=== PATIENT | female | born 1950 | race Caucasian/White ===

== ENCOUNTER 2020-10-12 19:06 | Emergency (ER) | payer OTHER ==
--- OUTSIDE RECORDS SUMMARY | 2020-10-12 19:10 | XMS REPORT | Clinical Summary ---
:1950 Author Organization [facility] Address [address] [place] [address] Care Team Providers Name Role Phone Charbel Hernandez MD Primary Care Provider Allergies No Known Active Allergies Medications Medication Sig Dispensed Refills Start End Status Date Date meloxicam (Mobic) 15 Take 1 tablet 30 tablet 0 04/21/2005/21 mg tabletIndications: (15 mg total) 20 020 Right hip pain, by mouth daily Trochanteric bursitis for 30 days. of right hip meloxicam (Mobic) 15 Take 1 tablet 30 tablet 0 06/07/2007/072 Discontinued mg tabletIndications: (15 mg total) 20 020 (Reorder) Right hip pain, by mouth daily Degenerative tear of for 30 days. acetabular labrum of right hip meloxicam (Mobic) 15 Take 1 tablet 30 tablet 0 07/07/2008/06 mg tabletIndications: (15 mg total) 20 020 Right hip pain, by mouth daily Degenerative tear of for 30 days. acetabular labrum of Take with food. right hip methylPREDNISolone Take 1 tablet 21 tablet 0 08/05/202 (MEDROL DOSEPAK) 4 mg (4 mg total) by 20 02 0 tabletIndications: mouth See Admin Acute right-sided low Instructions back pain, unspecified for 5 days. Use whether sciatica as directed by present, Lumbar package radiculopathy, instructions Degeneration of lumbar intervertebral disc, Scoliosis of lumbar spine, unspecified scoliosis type meloxicam (Mobic) 15 Take 1 tablet 30 tablet 0 09/01/2010/01 mg tabletIndications: (15 mg total) 20 020 Chronic right-sided by mouth daily low back pain, for 30 days. unspecified whether sciatica present, Degeneration of lumbar intervertebral disc, Scoliosis of lumbar spine, unspecified scoliosis type, Pain of right lower extremity Active Problems No known active problems Encounters Date Type Specialty Care Team Description 09/09/2020 Office Visit Orthopedic Surgery Jerardo Triana Right hi p pain (Primary Dx); MD Jonnathan Lumbar radiculo monica; Degeneration of lumbar intervertebral disc; Acute right-kyle ed low back pain, unspecified whether sciatica present; Scoliosis of fiona mbar spine, unspecified scoliosis type 09/08/2020 Hospital Encounter Radiology Jerardo Triana MD 09/08/2020 Hospital Encounter Radiology Jerardo Triana Abnormal MRI, lumbar spine; MD Jonnathan Lesion of lumba r spine 09/08/2020 Travel 09/02/2020 Telephone Orthopedic Surgery Toan Bryant, JOSE 09/02/2020 Orders Only Orthopedic Surgery Haylee Bonilla, Abnormal MRI, lumbar spine (Primary Dx); RYAN Lesion of lumba r spine 09/01/2020 Hospital Encounter Radiology Jerardo Triana Chronic right-sided low back pain, unspecified whether sciatica present; MD Jonnathan Degeneration of lumbar intervertebral disc; Scoliosis of fiona mbar spine, unspecified scoliosis type; Pain of right l ower extremity 09/01/2020 Office Visit Orthopedic Surgery Jerardo Triana Chronic right-sided low back pain, unspecified whether sciatica present (Primary Dx); MD Jonnathan Degeneration of lumbar intervertebral disc; Scoliosis of fiona mbar spine, unspecified scoliosis type; Pain of right l ower extremity 09/01/2020 Travel 08/05/2020 Office Visit Orthopedic Surgery Jerardo Triana Acute ri ght-sided low back pain, unspecified whether sciatica present (Primary Dx); MD Jonnathan Lumbar radiculo monica; Degeneration of lumbar intervertebral disc; Scoliosis of fiona mbar spine, unspecified scoliosis type 08/05/2020 Travel 08/01/2020 Travel 07/07/2020 Telemedicine Orthopedic Surgery Jerardo Triana Right hi p pain; MD Jonnathan 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 06/07/2020 Office Visit Orthopedic Surgery Jerardo Triana Right hi p pain (Primary Dx); MD Jonnathan 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; Tear of right g luteus minimus tendon, initial encounter; Tendinopathy of right gluteus medius 06/06/2020 Travel 05/27/2020 Office Visit Orthopedic Surgery Jerardo Triana Right hi p pain MD Jonnathan (Primary Dx) 05/26/2020 Travel 04/21/2020 Office Visit Orthopedic Surgery Jerardo Triana Right hi p pain (Primary Dx); MD Jonnathan Trochanteric bu rsitis of right hip 04/21/2020 Travel 04/07/2020 Office Visit Orthopedic Surgery Jerardo Triana Right hi p pain (Primary Dx); MD Jonnathan Trochanteric bu rsitis of right hip 04/07/2020 Travel 03/24/2020 Office Visit Orthopedic Surgery Jerardo Triana Right hi p pain (Primary Dx); MD Jonnathan Trochanteric bu rsitis of right hip 03/24/2020 Travel 03/18/2020 Travel 02/24/2020 Travel 01/08/2020 Travel 12/31/2019 Office Visit Orthopedic Surgery Jerardo Triana Right hi p pain (Primary Dx); MD Jonnathan Greater trochan teric bursitis of right hip 12/31/2019 Travel after 10/12/2019 Social History Tobacco Use Types Packs/Day Years Used Date Never Smoker Smokeless Tobacco: Never Used Sex Assigned at Date Recorded Not on file Job Start Date Occupation Industry Not on file Not on file Not on file Last Filed Vital Signs Vital Sign Reading Time Taken Comments Blood Pressure - - Pulse - - Temperature - - Respiratory Rate - - Oxygen Saturation - - Inhaled Oxygen Concentration - - Weight 61.2 kg (135 lb) 12/31/2019 1:32 PM CDT Height 157.5 cm (5' 2") 12/31/2019 1:32 PM CDT Body Mass Index 24.69 12/31/2019 1:32 PM CDT Plan of Treatment Health Maintenance Due Date Last Done Comments COVID-19 VACCINE (#1) 1966 BREAST CANCER SCREENING 1999 COLONOSCOPY SCREENING 1999 SHINGLES VACCINES (#1) 1999 65+ PNEUMOCOCCAL VACCINE (1 of 1 - PPSV23) 2014 INFLUENZA VACCINE 05/21/2020 Procedures Procedure Name Priority Date/Time Associated Diagnosis Comme nts NM BONE SCAN 3 PHASE STAT 09/08/2020 12:14 Abnormal MRI, fiona mbar Results for this PM WEB SUPPORT ENGINEER spine procedure are in Lesion of lumbar the results spine section. MRI LUMBAR SPINE WO STAT 09/01/2020 3:41 Chronic right-kyle ed Results for this CONTRAST PM WEB SUPPORT ENGINEER low back pain, procedure are in unspecified whether the resu lts sciatica present section. Degeneration of lumbar intervertebral disc Scoliosis of lumbar spine, unspecified scoliosis type Pain of right lower extremity XR LUMBAR SPINE Routine 08/05/2020 10:52 Acute right-sided low Results for this COMPLETE 4+ VW AM CDT back pain, procedure are in unspecified whether the resu lts sciatica present section. MRI LOWER EXTREMITY Routine 06/06/2020 11:29 Right hip pain Re sults for this JOINT WO CONTRAST AM CDT procedure are in RIGHT the results section. CA ARTHROCENTESIS Routine 04/21/2020 10:00 Right hip jessy n Results for this ASPIR&/INJ MAJOR AM CDT Trochanteric bursitis pr ocedure are in JT/BURSA W/O US of right hip the results section. CA ARTHROCENTESIS Routine 04/07/2020 10:00 Right hip jessy n Results for this ASPIR&/INJ MAJOR AM CDT Trochanteric bursitis pr ocedure are in JT/BURSA W/O US of right hip the results section. CA ARTHROCENTESIS Routine 03/24/2020 9:30 Right hip jessy n Results for this ASPIR&/INJ MAJOR AM CDT Trochanteric bursitis pr ocedure are in JT/BURSA W/O US of right hip the results section. CA ARTHROCENTESIS Routine 12/31/2019 1:50 Greater trochanteri c Results for this ASPIR&/INJ MAJOR PM CDT bursitis of right hip pr ocedure are in JT/BURSA W/O US the results section. XR HIP 2-3 VIEWS RIGHT Routine 12/31/2019 1:39 Right hip pain Results for this PM CDT procedure are i n the results section. after 10/12/2019 Results NM Bone Scan 3 Phase (09/08/2020 12:14 PM WEB SUPPORT ENGINEER) Specimen Narrative Performed At PROCEDURE: NM BONE SCAN 3 PHASE HM [facility] INDICATION: Abnormal MRI. Lesion of lumbar spine. COMPARISON: MRI of the lumbar spine . TECHNIQUE: The patient was injected with 25 mCi of Tc- 99m labeled MDP IV and a three phase bone scan of the lumbar spine was pe rformed. Immediate flow and pool images were followed by delayed images a cquired three hours later. FINDINGS: Flow and pool images are unremarkable. D elayed images demonstrate scoliosis of the thoracolumbar spine, with associated degenerative uptake. No suspicious upt lashay in L4. IMPRESSION: 1. Probable benign lesion in L4. 2. Scoliosis of the thoracolumbar spine, with associ ated degenerative uptake. [facility]-[id number] Procedure Note Hm Interface, Radiology Results Incoming - 09/08/2020 12:51 PM WEB SUPPORT ENGINEER PROCEDURE: NM BONE SCAN 3 PHASE INDICATION: Abnormal MRI. Lesion of fiona mbar spine. COMPARISON: MRI of the lumbar spine 09/2020. TECHNIQUE: The patient was injected with 25 mCi of Tc-99m labeled MDP IV and a three phase bone scan of the lumbar spine was performed. Immediate flow and pool images were followed by delayed images acquired three hours later. FINDINGS: Flow and pool images are unre markable. Delayed images demonstrate scoliosis of the thoracolumbar spine, with associated degenerative uptake. No suspicious uptake in L4. IMPRESSION: 1. Probable benign lesion in L4. 2. Scoliosis of the thoracolumbar spine , with associated degenerative uptake. [facility]-[id number] Performing Organization Address City/State/ZIP Code Phon e Number [facility] [address] [place] [address] MRI Lumbar Spine Wo Contrast (09/01/2020 3:41 PM WEB SUPPORT ENGINEER) Specimen Narrative Performed At This result has an attachment that is no t available. EXAMINATION: MRI LUMBAR SPINE WO CONTRAST [facility] CLINICAL HISTORY: M54.5 Low back pain, G 89.29 Other chronic pain, Back pain > 6wks conservative tx persistent sx COMPARISON: Lumbar spine x-ray dated August 05 0 TECHNIQUE: Multiplanar multisequence non contrast enhanced examination was performed of the Lumbar spine. FINDINGS: Numbering assumes that the last visualized functional disc to be L5-S1. There is 34 degrees leftward curvature a t L2. Leftward listhesis of L2, L3 and L4. There is leftward rotation of the lumbar spine in addition to the scoliosis. Vertebral body heights are maintained wi thout acute fracture. No acute edema identified. There is a large sclerotic focus in the lateral aspect of the L4 vertebral body which measures 2.2 cm in superior inferior dimension. Recommend correlation with bone scan imaging to determine significance and to exclude malignancy. There is no edema associated with this lesion. The borders are irregular. It remains indeterminate. Soft tissues shows no mass, adenopathy or aneurysm. The partially visualized spinal cord and the conus are unremarkable. Axial images through the disc spaces demonstrate the f ollowing: T12-L1: No significant posterior disc di sease, spinal canal, lateral recess or neural foraminal stenosis. L1-L2: No significant posterior disc dis ease, spinal canal, lateral recess or neural foraminal stenosis. L2-L3: Facet hypertrophy and spurring an d disc bulge results in mild narrowing of left lateral recess. The foramina are patent. L3-L4: There is disc desiccation with di sc bulge with facet hypertrophy with moderate left and minimal right foraminal narrowing. The central thecal sac is patent. The foramina are patent. L4-L5: There is disc bulge and facet hyp ertrophy with moderate narrowing of left lateral recess and mild right lateral recess narrowing. The central thecal sac is patent. Facet spurring and disc osteophyte changes results in moderate left foraminal narrowing. The right foramen is patent. L5-S1: There is facet hypertrophy and di sc bulge with no significant canal or lateral recess narrowing. Facet spurring and disc osteophyte changes results in moderate left and minimal right foraminal narrowing. The partially visualized upper sacrum is unremarkable. IMPRESSION: 1.There is prominent leftward scoliosis and rotation with multilevel spondylosis as detailed above. No acute osseous abnormality is identified. 2.There is a 2.2 cm sclerotic lesion not ed in the right aspect of the L4 vertebral body. This could be a large bone island or a sclerotic metastatic lesion. Recommend further evaluation with bone scan imaging. [facility]-[id number] Procedure Note Hm Interface, Radiology Results - 09/01/2020 3:58 PM WEB SUPPORT ENGINEER EXAMINATION: MRI LUMBAR SPINE WO CONTRAST CLINICAL HISTORY: M54.5 Low back pain, G 89.29 Other chronic pain, Back pain > 6wks conservative tx persistent sx COMPARISON: Lumbar spine x-ray dated Oc 2019 TECHNIQUE: Multiplanar multisequence non contrast enhanced examination was performed of the Lumbar spine. FINDINGS: Numbering assumes that the last visualiz ed functional disc to be L5-S1. There is 34 degrees leftward curvature a t L2. Leftward listhesis of L2, L3 and L4. There is leftward rotation of the lumbar spine in addition to the scoliosis. Vertebral body heights are maintained wi thout acute fracture. No acute edema identified. There is a large sclerotic focus in the lateral aspect of the L4 vertebral body which measures 2.2 cm in superior inferior dimension. Recommend correlation with pablo ne scan imaging to determine significance and to exclude malignancy. There is no edema associated with this lesion. The borders are irregular. It remains indeterminate. Soft tissues shows no mass, adenopathy o r aneurysm. The partially visualized spinal cord and the conus are unremarkable. Axial images through the disc spaces dem onstrate the following: T12-L1: No significant posterior disc di sease, spinal canal, lateral recess or neural foraminal stenosis. L1-L2: No significant posterior disc dis ease, spinal canal, lateral recess or neural foraminal stenosis. L2-L3: Facet hypertrophy and spurring an d disc bulge results in mild narrowing of left lateral recess. The foramina are patent. L3-L4: There is disc desiccation with di sc bulge with facet hypertrophy with moderate left and minimal right foraminal narrowing. The central thecal sac is patent. The foramina are patent. L4-L5: There is disc bulge and facet hyp ertrophy with moderate narrowing of left lateral recess and mild right lateral recess narrowing. The central thecal sac is patent. Facet spurring and disc osteophyte changes results in moderate left foraminal narrowing. The right foramen is patent. L5-S1: There is facet hypertrophy and di sc bulge with no significant canal or lateral recess narrowing. Facet spurring and disc osteophyte changes results in moderate left and minimal right foraminal narrowing. The partially visualized upper sacrum is unremarkable. IMPRESSION: 1.There is prominent leftward scoliosis and rotation with multilevel spondylosis as detailed above. No acute osseous abnormality is identified. 2.There is a 2.2 cm sclerotic lesion not ed in the right aspect of the L4 vertebral body. This could be a large bone island or a sclerotic metastatic lesion. Recommend further evaluation with bone scan imaging. [facility]-[id number] Performing Organization Address City/State/ZIP Code Phon e Number [facility] [address] [place] [address] XR Lumbar Spine Complete 4+ Vw (08/05/2020 10:52 AM CDT) Specimen Narrative Performed At This result has an attachment that is no t available. AP lateral oblique x-rays of the lumbar spine show a severe scoliosis. [facility] With angulation of her low back. Has marked facet na rrowing degenerative changes throughout her low back area. She has marked interspace narrowing at multiple levels in her low back. Performing Organization Address City/State/ZIP Code Phon e Number MELIA [facility] [address] [place] [address] MRI Lower Extremity Joint Wo Contrast Right (06/06/2020 11:29 AM CDT) Specimen Narrative Performed At This result has an attachment that is no t available. EXAMINATION: MRI LOWER EXTREMITY JOINT WO CONTRAST RIGHT [facility] CLINICAL HISTORY: M25.551 Pain in righ t hip, Hip pain chronic initial exam TECHNIQUE: Multiplanar, multisequence MR imaging examination of the right hip obtained without contrast. Radial imaging also archived and interpreted. COMPARISON: X-ray 12/31/2019 IMPRESSION: 1.Marrow signal show no osteonecrosis or fracture. No hip joint effusion. 2.Mild degenerative change of the hip. A nondisplaced anterosuperior labral tear is likely degenerative. Series 5 image 12. Also on series 10 images 2 and 3. Mild subjacent reactive marrow change in the acetabulum. 3.Mild tendinitis and peritendinitis of the gluteus medius insertion. Low-grade partial thickness interstitial tearing of the gluteus minimus insertion. 4.Mild common hamstring origin tendiniti s mostly involving the semimembranosus origin. Remaining visualized muscle groups appear well-maintained. 5.Visualized portions of the sciatic nerve well-mainta ined. 6.Mild trochanteric bursitis. SUMMARY: Low-grade partial-thickness interstitial tearing of the gluteus minimus insertion and mild gluteus medius tendinitis and peritendinitis. Mild trochanteric bursitis. Nondisplaced degenerative tear of the an terosuperior labrum and other findings as above [id number] Procedure Note Interface, Radiology Results Incoming - 06/06/2020 11:45 AM CDT EXAMINATION: MRI LOWER EXTREMITY JOINT WO CONTRAST RIGHT CLINICAL HISTORY: M25.551 Pain in right hip, Hip pain chronic initial exam TECHNIQUE: Multiplanar, multisequence MR imaging examination of the right hip obtained without contrast. Radial imaging also archived and interpreted. COMPARISON: X-ray 12/31/2019 IMPRESSION: 1.Marrow signal show no osteonecrosis or fracture. No hip joint effusion. 2.Mild degenerative change of the hip. A nondisplaced anterosuperior labral tear is likely degenerative. Series 5 image 12. Also on series 10 images 2 and 3. Mild subjacent reactive marrow change in the acetabulum. 3.Mild tendinitis and peritendinitis of the gluteus medius insertion. Low-grade partial thickness interstitial tearing of the gluteus minimus insertion. 4.Mild common hamstring origin tendiniti s mostly involving the semimembranosus origin. Remaining visualized muscle groups appear well-maintained. 5.Visualized portions of the sciatic ner ve well-maintained. 6.Mild trochanteric bursitis. SUMMARY: Low-grade partial-thickness interstitial tearing of the gluteus minimus insertion and mild gluteus medius tendinitis and peritendinitis. Mild trochanteric bursitis. Nondisplaced degenerative tear of the an terosuperior labrum and other findings as above [id number] Performing Organization Address City/State/[facility] Code [facility] e Number [id number] [facility] [address] [place] [address] Large Joint Arthrocentesis: hip, R greater trochanteric bursa (04/21/2020 10:00 AM CDT) Narrative Performed At Jerardo Triana MD 04/21/2020 2: 37 PM Large Joint Arthrocentesis: hip, R great er trochanteric bursa Consent given by: patient Timeout: Immediately prior to procedure a time out was called to verify the correct patient, procedure, equipmen t, systems support specialist and site/side marked as required Supporting Documentation Indications: pain Procedure Details Ultrasound guided: no Platelet Rich Plasma Used: no PRP Used Location: hip - R greater trochanteric b ursa Right side: Needle size: 25 G Approach: lateral Right hip medications administered: 1 mL lidocaine 10 mg/mL (1 %); 6 mg betamethasone acetate & sodium phosphate 6 mg/mL Patient tolerance: patient tolerated the procedure wel l with no immediate complications Large Joint Arthrocentesis: hip, R greater trochanteric bursa (04/07/2020 10:00 AM CDT) Narrative Performed At Jerardo Triana MD 04/07/2020 2 :04 PM Large Joint Arthrocentesis: hip, R great er trochanteric bursa Consent given by: patient Timeout: Immediately prior to procedure a time out was called to verify the correct patient, procedure, equipmen t, systems support specialist and site/side marked as required Supporting Documentation Indications: pain Procedure Details Ultrasound guided: no Platelet Rich Plasma Used: no PRP Used Location: hip - R greater trochanteric b ursa Right side: Needle size: 25 G Approach: lateral Right hip medications administered: 1 mL lidocaine 10 mg/mL (1 %); 6 mg betamethasone acetate & sodium phosphate 6 mg/mL Patient tolerance: patient tolerated the procedure wel l with no immediate complications Large Joint Arthrocentesis: hip, R greater trochanteric bursa (03/24/2020 9:30 AM CDT) Narrative Performed At Jerardo Triana MD 03/24/2020 1: 51 PM Large Joint Arthrocentesis: hip, R great er trochanteric bursa Consent given by: patient Timeout: Immediately prior to procedure a time out was called to verify the correct patient, procedure, equipmen t, systems support specialist and site/side marked as required Supporting Documentation Indications: pain Procedure Details Ultrasound guided: no Platelet Rich Plasma Used: no PRP Used Location: hip - R greater trochanteric b ursa Right side: Needle size: 25 G Approach: lateral Right hip medications administered: 1 mL lidocaine 10 mg/mL (1 %); 6 mg betamethasone acetate & sodium phosphate 6 mg/mL Patient tolerance: patient tolerated the procedure wel l with no immediate complications Large Joint Arthrocentesis: hip, R greater trochanteric bursa (12/31/2019 1:50 PM CDT) Narrative Performed At Jerardo Triana MD 12/31/2019 4 :19 PM Large Joint Arthrocentesis: hip, R great er trochanteric bursa Consent given by: patient Supporting Documentation Indications: pain Procedure Details Ultrasound guided: no Platelet Rich Plasma Used: no PRP Used Location: hip - R greater trochanteric b ursa Right side: Needle size: 25 G (25 G) Approach: lateral Right hip medications administered: 1 mL lidocaine 10 mg/mL (1 %); 6 mg betamethasone acetate & sodium phosphate 6 mg/mL (3mg betamethasone acet, sod phos 3mg/ml) Patient tolerance: patient tolerated the procedure wel l with no immediate complications XR Hip 2-3 View Right (12/31/2019 1:39 PM CDT) Specimen Narrative Performed At This result has an attachment that is no t available. PA and lateral x-ray of the right hip shows the contours of the femoral HM [facility] head and acetabulum are normal. The hip joint space was normal with no narrowing. Small opacification at the head neck junc tion. There is some subtle cysts in the acetabulum. Performing Organization Address City/State/ZIP Code Phon e Number HM [facility] [address] [place] [address] after 10/12/2019 (Home) [address] [place] [id number] Advance Directives For more information, please contact: [phone] Type Date Recorded Patient Ship Erector Explanati on Advance Directives, Living Will and Medical Power of Electrician Bus
--- OUTSIDE RECORDS SUMMARY | 2020-10-12 19:10 | XMS REPORT | Clinical Summary ---
:1950 Author Organization [facility] Address [address] [place] [address] Care Team Providers Name Role Phone Travis Hernandez Primary Care Provider Allergies Not on File Medications Not on file Active Problems Not on file Encounters Date Type Specialty Care Team Description 08/05/2020 Hospital Encounter Sheryl Alarcon Breast lump or mass; MD [place] Lump or mass in breast 08/05/2020 Hospital Encounter Olena Alarconly Lump or mass in MD Mary breast 08/05/2020 Outside Orders Sheryl Alarcon or mas s in MD Mary breast (Primary Dx) 03/28/2020 Outside Orders Central Scheduling Sheryl Alarcon t lump or mass MD Mary (Primary Dx) after 10/12/2019 Social History Tobacco Use Types Packs/Day Years Used Date Never Assessed Sex Assigned at Date Recorded Not on file Last Filed Vital Signs Not on file Plan of Treatment Health Maintenance Due Date Last Done Comments COLON CANCER SCREENING COLONOSCOPY 1950 PNEUMOCOCCAL 65+ YRS (1 of 1 - 2014 [id number]) INFLUENZA VACCINE (#1) 2020 BREAST CANCER SCREENING 08/05/2022 08/05/2020, 03/03/2018, 01/29/2017, Additional history exists Procedures Procedure Name Priority Date/Time Associated Comments Diagnosis US BREAST BILATERAL Routine 08/05/2020 10:14 AM Lump or mass i n Results for this CDT breast procedure are i n the results section. MM DIGITAL MAMMO Routine 08/05/2020 9:44 AM Lump or mass in R esults for this DIAGNOSTIC BILATERAL CDT breast procedu re are in the results section. after 10/12/2019 Results US Breast Bilateral (08/05/2020 10:14 AM CDT) Specimen Narrative Performed At [facility] #[id number] - MM, U/S, BREAST, BILATERAL COMPLETE ULTRASOUND OF BOTH BREASTS AND AXILLA: 08/05/2020 Comparison is made to exam dated: 07/21 mammogram - [facility]. Color flow and real-time ultrasound of b oth breasts four quadrants, retroareolar, and axilla regions were pe rformed. Coreas scale images of the real-time examination were review ed. No significant abnormalities were seen s onographically in either breast, with atention to the area of cli nical concern in the left posterior chest/back. IMPRESSION: BENIGN The findings have been discussed with th e patient. There is no sonographic evidence of apryl gnancy. A 1 year screening mammogram is recommen ded. Claudine James M.D. pth/:08/05/2020 10:36:38 Normal Exam Ultrasound BI-RADS: 2 Benign [id number] Procedure Note Interface, External Ris In - 08/05/2020 4:12 PM [facility] #[id number] - MM, U/S, BREAST, BILATERAL COMPLETE ULTRASOUND OF BOTH BREASTS AND AXILLA: 08/05/2020 Comparison is made to exam dated: 08/05 mammogram - [facility]. Color flow and real-time ultrasound of b oth breasts four quadrants, retroareolar, and axilla regions were pe rformed. Coreas scale images of the real-time examination were review ed. No significant abnormalities were seen s onographically in either breast, with atention to the area of cli nical concern in the left posterior chest/back. IMPRESSION: BENIGN The findings have been discussed with th e patient. There is no sonographic evidence of apryl gnancy. A 1 year screening mammogram is recommen ded. Claudine James M.D. pth/:08/05/2020 10:36:38 Normal Exam Ultrasound BI-RADS: 2 Benign [id number] Performing Organization Address City/State/Zipcode Phone Number [facility] MM digital mammo diagnostic bilateral (08/05/2020 9:44 AM CDT) Specimen Narrative Performed At [facility] #[id number] - MM, DIGITAL MAMMO, DIAGNOSTI C, BILATERAL INCLUDING CAD BILATERAL DIGITAL DIAGNOSTIC MAMMOGRAM W ITH CAD: 08/05/2020 Comparison is made to exams dated: 02/18 mammogram and 01/29/2017 mammogram - [facility]. The tissue of both breasts is heterogene ously dense. This may lower the sensitivity of mammography. Current study was also evaluated with a Computer Aided Detection (CAD) system. Benign appearing calcifications are pres ent in both breasts. There is a post-surgical scar associated with the left breast. No significant masses, calcifications, or o ther findings are seen in either breast. IMPRESSION: There is no mammographic evidence of mal ignancy. A 1 year screening mammogram is recommended. Claudine James M.D. pth/penrad:08/05/2020 10:15:09 Normal Exam Mammogram BI-RADS: 2 Benign [id number] Procedure Note Interface, External Ris In - 08/05/2020 4:12 PM CDT #[id number] - MM, DIGITAL MAMMO, DIAGNOSTI C, BILATERAL INCLUDING CAD BILATERAL DIGITAL DIAGNOSTIC MAMMOGRAM W ITH CAD: 08/05/2020 Comparison is made to exams dated: 03/03 mammogram and 01/29/2017 mammogram - [facility]. The tissue of both breasts is heterogene ously dense. This may lower the sensitivity of mammography. Current study was also evaluated with a Computer Aided Detection (CAD) system. Benign appearing calcifications are pres ent in both breasts. There is a post-surgical scar associated with the left breast. No significant masses, calcifications, or o ther findings are seen in either breast. IMPRESSION: There is no mammographic evidence of mal ignancy. A 1 year screening mammogram is recommended. Claudine James M.D. pth/penrad:08/05/2020 10:15:09 Normal Exam Mammogram BI-RADS: 2 Benign [id number] Performing Organization Address City/State/Zipcode Phone Number [facility] after 10/12/2019 Insurance Payer Benefit Plan / Subscriber ID Effective Dates Phone Addre ss Type Group AET[employer] - MGD AETNA OPEN [id number] 2018-Present HMO/POS CARE ACCESS HMO NAP [phone] [id number] (Work)
--- OUTSIDE RECORDS SUMMARY | 2020-10-12 19:11 | XMS REPORT | Continuity of Care Document ---
:[address] [facility] t Address [address] [place] [address] Care Team Providers Name Role Phone Travis Hernandez MD Primary Care Physician Jonnathan Triana MD Attending Clinician Arun Bryant NP Attending Clinician Chad DAVIS Attending Clinician Unavailable Mary Alarcon MD Attending Clinician TRUONG Attending Clinician Unavailable Payers Payer Name Policy Type Policy Effective Date Expiration Date Sour ce Number AETNAAETNA PPO [id number] 2018 [facility] 00:00:00 Yarsanism [id number] 2018-Presen tPPO AETNA - MGD [id number] 2018 [facility] OPEN 00:00:00 Medical Ce nter ACCESS HMO [id number] 1/2018-PresentHM O/POS Problems Condition Condition Condition Status Onset Resolution Last Treating Co mments Source Name Details Category Date Date Treatment Clinician Date Left Left Problem Active [facility] shoulder shoulder [id number] it y of pain pain [place] [facility] Allergies, Adverse Reactions, Alerts This patient has no known allergies or adverse reactions. Social History Social Habit Start Date Stop Date Quantity Comments Source Sex Assigned At [facility] Tobacco use and 2019-12-31 2019-12-31 Never used [facility] ethodist exposure 00:00:00 00:00:00 Smoking Status Start Date Stop Date Source Never smoker Aram Slaughter t Medications Ordered Filled Start Stop Current Ordering Indication Dosage Frequency Signature Comments Components Source Medication Medication Date Date Medication? Clinician (SIG) Name Name meloxicam 2019-10- No Pain of 15mg QD Take 1 Cristopher kennedy ([facility]) 15 11-01 12-12 right lower tablet (15 [facility] mg tablet 00:00: 23:59 extremity mg total) st 00 :00 by mouth daily for 30 days. methylPREDN 2019-10- No Scoliosis 4mg Take 1 Terrell ISolone 0-16 10-21 of lumbar tablet (4 M ethodi (MEDROL 00:00: 23:59 spine, mg total) st DOSEPAK) 4 00 :00 unspecified by mouth mg tablet scoliosis See Admin type Instructio ns for 5 days. Use as directed by package instructio ns meloxicam 2019- No Degenerativ 15mg QD Take 1 Chiu ([employer]) 15 9-17 10-17 e tear of tablet (15 [facility] mg tablet 00:00: 23:59 acetabular mg total) st 00 :00 labrum of by mouth right hip daily for 30 days. Take with food. meloxicam 2019- No Degenerativ 15mg QD Take 1 Chiu ([employer]) 15 818 09-17 e tear of tablet (15 [facility] mg tablet 00:00: 00:00 acetabular mg total) st 00 :00 labrum of by mouth right hip daily for 30 days. meloxicam 2019- No Trochanteri 15mg QD Take 1 Terrell ([employer]) 15 04-21 08-01 c bursitis tablet (15 [facility] mg tablet 00:00: 23:59 of right mg total) st 00 :00 hip by mouth daily for 30 days. Vital Signs Vital Name Observation Time Observation Value Comments Source Body height 2019-12-31 13:32:00 157.5 cm Aram Burgos Body weight 2019-12-31 13:32:00 61.236 kg Aram Burgos BMI 2019-12-31 13:32:00 24.69 kg/m2 Aram Burgos Procedures Procedure Date / Time Performing Clinician Source Performed NM BONE SCAN 3 PHASE 2020-09-08 12:14:21 Akash Triana MRI LUMBAR SPINE WO 2020-09-01 15:41:30 Akash Triana CONTRAST XR LUMBAR SPINE COMPLETE 2020-08-05 10:52:30 Akash Triana 4+ VW US BREAST BILATERAL 2020-08-05 10:14:00 Sheryl Alarcon MaikelJerrell [facility] Center MM DIGITAL MAMMO 2020-08-05 09:44:00 Laura Alarconrichie KoJerrell [facility] - DIAGNOSTIC BILATERAL Medical [address] ter MRI LOWER EXTREMITY JOINT 2020-06-06 11:29:24 Akash Triana WO CONTRAST RIGHT MS ARTHROCENTESIS 2020-04-21 10:00:00 Akash Triana ethodist ASPIR&/INJ MAJOR JT/BURSA W/O US MS ARTHROCENTESIS 2020-04-07 10:00:00 Akash Triana ethodist ASPIR&/INJ MAJOR JT/BURSA W/O US MS ARTHROCENTESIS 2020-03-24 09:30:00 Akash Triana ethodist ASPIR&/INJ MAJOR JT/BURSA W/O US MS ARTHROCENTESIS 2019-12-31 13:50:00 Akash Triana ethodist ASPIR&/INJ MAJOR JT/BURSA W/O US XR HIP 2-3 VIEWS RIGHT 2019-12-31 13:39:10 Akash Triana Plan of Care Planned Activity Planned Date Details Comments Source Future Scheduled 2022-08-05 Screening for SAM Davalos es - Test 00:00:00 malignant neoplasm of Medica l Center breast (procedure) [code = 927023109] Future Scheduled 2020-06-21 INFLUENZA VACCINE (#1) [facility] Test 00:00:00 [code = INFLUENZA Medical Ce nter VACCINE (#1)] Future Scheduled 2020-05-21 INFLUENZA VACCINE [facility] Test 00:00:00 [code = INFLUENZA VACCINE] Future Scheduled 2014 65+ PNEUMOCOCCAL Aram [facility] Test 00:00:00 VACCINE (1 of 1 - PPSV23) [code = 65+ PNEUMOCOCCAL VACCINE (1 of 1 - PPSV23)] Future Scheduled 2014 PNEUMOCOCCAL 65+ YRS [facility] - Test 00:00:00 (1 of 1 - [facility] [id number] PCV13) [code = PNEUMOCOCCAL 65+ YRS (1 of 1 - [id number] PCV13)] Future Scheduled 1999 BREAST CANCER Terrell [facility] Test 00:00:00 SCREENING [code = BREAST CANCER SCREENING] Future Scheduled 1999 COLONOSCOPY SCREENING [place] [facility] Test 00:00:00 [code = COLONOSCOPY SCREENING] Future Scheduled 1999 SHINGLES VACCINES (#1) [place] [facility] Test 00:00:00 [code = SHINGLES VACCINES (#1)] Future Scheduled 1965 COVID-19 VACCINE (#1) [place] [facility] Test 00:00:00 [code = COVID-19 VACCINE (#1)] Future Scheduled [address] [facility] - Test 00:00:00 malignant neoplasm of Medica l Center colon (procedure) [code = 428861402] Encounters Start End Encounter Admission Attending Care Care Encounter Source Date/Time Date/Time Type Type Clinicians Facility Department ID 2020-09-09 2020-09-09 Outpatient SI[facility], [facility] [id number] [place] 00:00:00 00:00:00 AKASH [address] 2020-09-08 2020-09-08 Outpatient [facility], [facility] [id number] [place] 00:00:00 00:00:00 AKASH [address] 2020-09-08 2020-09-08 Outpatient [facility], [facility] [id number] [place] 00:00:00 00:00:00 AKASH [address] 2020-09-01 2020-09-01 Outpatient [facility], [facility] [id number] [place] 00:00:00 00:00:00 AKASH [address] 2020-09-01 2020-09-01 Outpatient [facility], [facility] [id number] [place] 00:00:00 00:00:00 AKASH [address] 2020-08-05 2020-08-05 Outpatient [facility], [facility] [id number] [place] 00:00:00 00:00:00 AKASH [address] 2020-08-05 2020-08-05 Outpatient [facility], [facility] [id number] [place] 00:00:00 00:00:00 AKASH 041 Method i 2020-07-07 2020-07-07 Outpatient [facility], [facility] [id number] [place] 00:00:00 00:00:00 AKASH 485 Method i 2020-06-07 2020-06-07 Outpatient [facility], [facility] [id number] [place] 00:00:00 00:00:00 AKASH 671 Method i 2020-06-06 2020-06-06 Outpatient [facility], [facility] [id number] [place] 00:00:00 00:00:00 AKASH 035 Method i 2020-05-27 2020-05-27 Outpatient [facility], [facility] [id number] [place] 00:00:00 00:00:00 AKASH 630 Method i 2020-04-21 2020-04-21 Outpatient [facility], [facility] [id number] [place] 00:00:00 00:00:00 AKASH 258 Method i 2020-04-07 2020-04-07 Outpatient [facility], [facility] [id number] [place] 00:00:00 00:00:00 AKASH 464 Method i 2020-03-24 2020-03-24 Outpatient [facility], [facility] [id number] [place] 00:00:00 00:00:00 AKASH 717 Method i 2019-12-31 2019-12-31 Outpatient [facility], [facility] [id number] [place] 00:00:00 00:00:00 AKASH 648 Method i 2019-12-31 2019-12-31 Outpatient [facility], [facility] [id number] [place] 00:00:00 00:00:00 AKASH 941 Method i 2017-01-15 2017-01-15 Appointmen TRUONG [facility] [id number] [facility] 10:00:00 10:00:00 tCHUCK EDWARDS M.D. [facility] i ty of Aaliyah WOOD[place] [facility] A Physici ans Results Test Description Test Test Comments Results Result [facility] e Time Comments NM Bone Scan 3 [facility] Phase [address] 12:48:26 09/08/2020 12:51 PM CSTPROCEDURE: NM BONE SCAN 3 PHASEINDICATION: Abnormal MRI. Lesion of lumbar spine. COMPARISON: MRI of the lumbar spine 09/01/2020. TECHNIQUE: The patient was injected with 25 mCi of Tc-99m labeled MDP IV and a three phase bone scan of the lumbar spine was performed. Immediate flow and pool images were followed by delayed images acquired three hours later. FINDINGS: Flow and pool images are unremarkable. Delayed images demonstrate scoliosis of the thoracolumbar spine, with associated degenerative uptake. No suspicious uptake in L4. IMPRESSION: 1. Probable benign lesion in L4.2. Scoliosis of the thoracolumbar spine, with associated degenerative uptake.[facility]-[id number] MRI Lumbar Spine 2020-08- Interface, [place] Contrast 12 Radiology Results Method ist 15:55:19 Incoming - 09/01/2020 3:58 PM CSTEXAMINATION: MRI LUMBAR SPINE WO CONTRASTCLINICAL HISTORY: M54.5 Low back pain, G89.29 Other chronic pain, Back pain > 6wks conservative tx persistent sxCOMPARISON: Lumbar spine x-ray dated August 05, 2020TECHNIQUE: Multiplanar multisequence noncontrast enhanced examination was performed of the Lumbar spine.FINDINGS:Number ing assumes that the last visualized functional disc to be L5-S1.There is 34 degrees leftward curvature at L2. Leftward listhesis of L2, L3 and L4. There is leftward rotation of the lumbar spine in addition to the scoliosis.Vertebral body heights are maintained without acute fracture. No acute edema identified. There is a large sclerotic focus in the lateral aspect of the L4 vertebral body which measures 2.2 cm in superior inferior dimension. Recommend correlation with bone scan imaging to determine significance and to exclude malignancy. There is no edema associated with this lesion. The borders are irregular. It remains indeterminate.Soft tissues shows no mass, adenopathy or aneurysm. The partially visualized spinal cord and the conus are unremarkable. Axial images through the disc spaces demonstrate the following:T12-L1: No significant posterior disc disease, spinal canal, lateral recess or neural foraminal stenosis.L1-L2: No significant posterior disc disease, spinal canal, lateral recess or neural foraminal stenosis.L2-L3: Facet hypertrophy and spurring and disc bulge results in mild narrowing of left lateral recess. The foramina are patent.L3-L4: There is disc desiccation with disc bulge with facet hypertrophy with moderate left and minimal right foraminal narrowing. The central thecal sac is patent. The foramina are patent.L4-L5: There is disc bulge and facet hypertrophy with moderate narrowing of left lateral recess and mild right lateral recess narrowing. The central thecal sac is patent. Facet spurring and disc osteophyte changes results in moderate left foraminal narrowing. The right foramen is patent.L5-S1: There is facet hypertrophy and disc bulge with no significant canal or lateral recess narrowing. Facet spurring and disc osteophyte changes results in moderate left and minimal right foraminal narrowing.The partially visualized upper sacrum is unremarkable.IMPRESSI ON: 1.There is prominent leftward scoliosis and rotation with multilevel spondylosis as detailed above. No acute osseous abnormality is identified.2.There is a 2.2 cm sclerotic lesion noted in the right aspect of the L4 vertebral body. This could be a large bone island or a sclerotic metastatic lesion. Recommend further evaluation with bone scan imaging.[facility]-[id number] MM, U/S, BREAST, 2020-07- Diagnostic BILATERAL 16 workup per 10:36:00 radiologist?-> CHI YesReason for [facility] Exam:->N63.0 CENTERName: CHEMA BHATTI : 1950 Sex: F MR N#: [id number] - MM, U/S, BREAST, BILATERAL COMPLETE ULTRASOUND OF BOTH BREASTS AND AXILLA: 08/05/2020Comparison is made to exam dated: 08/05/2020 mammogram - [facility]. Color flow and real-time ultrasound of both breasts four quadrants, retroareolar, and axilla regions were performed. Coreas scale images of the real-time examination were reviewed. No significant abnormalities were seen sonographically in either breast, with atention to the area of clinical concern in the left posterior chest/back. IMPRESSION: BENIGN The findings have been discussed with the patient. There is no sonographic evidence of malignancy. A 1 year screening mammogram is recommended. Claudine Renteria M.D. pth/:08/05/2020 10:36:38 Normal Exam Ultrasound BI-RADS: 2 Benign [id number] Breast 2020-07- Interface, External [facility] S t Lu Bilateral 16 Ris In - 08/05/2020 - Med ical 10:36:00 4:12 PM CDTMRN#: Center [id number] - MM, U/S, BREAST, BILATERAL COMPLETE ULTRASOUND OF BOTH BREASTS AND AXILLA: 08/05/2020Comparison is made to exam dated: 08/05/2020 mammogram - [facility]. Color flow and real-time ultrasound of both breasts four quadrants, retroareolar, and axilla regions were performed. Coreas scale images of the real-time examination were reviewed. No significant abnormalities were seen sonographically in either breast, with atention to the area of clinical concern in the left posterior chest/back. IMPRESSION: BENIGN The findings have been discussed with the patient. There is no sonographic evidence of malignancy. A 1 year screening mammogram is recommended. Claudine Renteria M.D. pth/:08/05/2020 10:36:38 Normal Exam Ultrasound BI-RADS: 2 Benign [id number] , DIGITAL 2020-07- Diagnostic MAMMO, 16 workup per DIAGNOSTIC, 10:15:00 radiologist?-> CHI BILATERAL YesReason for [facility] - MEDICAL INCLUDING CAD Exam:->N63.0 CENTERName: CHEMA BHATTI : 1950 Sex: F MR N#: [id number] - MM, DIGITAL MAMMO, DIAGNOSTIC, BILATERAL INCLUDING CAD BILATERAL DIGITAL DIAGNOSTIC MAMMOGRAM WITH CAD: 08/05/2020 Comparison is made to exams dated: 03/03/2018 mammogram and 01/29/2017 mammogram - [facility]. The tissue of both breasts is heterogeneously dense. This may lower the sensitivity of mammography. Current study was also evaluated with a Computer Aided Detection (CAD) system. Benign appearing calcifications are present in both breasts. There is a post-surgical scar associated with the left breast. No significant masses, calcifications, or other findings are seen in either breast. IMPRESSION: There is no mammographic evidence of malignancy. A 1 year screening mammogram is recommended. Claudine Renteria M.D. pth/penrad: 0 10:15:09 Normal Exam Mammogram BI-RADS: 2 Benign G0204 digital mammo 2020-07- Interface, External [facility] diagnostic 16 Ris In - 08/05/2020 - Med ical bilateral 10:15:00 4:12 PM CDTMRN#: Center [id number] - MM, DIGITAL MAMMO, DIAGNOSTIC, BILATERAL INCLUDING CAD BILATERAL DIGITAL DIAGNOSTIC MAMMOGRAM WITH CAD: 08/05/2020 Comparison is made to exams dated: 03/03/2018 mammogram and 01/29/2017 mammogram - [facility]. The tissue of both breasts is heterogeneously dense. This may lower the sensitivity of mammography. Current study was also evaluated with a Computer Aided Detection (CAD) system. Benign appearing calcifications are present in both breasts. There is a post-surgical scar associated with the left breast. No significant masses, calcifications, or other findings are seen in either breast. IMPRESSION: There is no mammographic evidence of malignancy. A 1 year screening mammogram is recommended. Claudine Renteria M.D. pth/penrad: 0 10:15:09 Normal Exam Mammogram BI-RADS: 2 Benign G0204 Large Joint 2020-04- SiffAkash MD [place] Arthrocentesis: 02 04/21/2020 2:37 Me thodist hip, R greater 10:00:00 PMLarge Joint trochanteric Arthrocentesis: hip, bursa R greater trochanteric bursaConsent given by: patientTimeout: Immediately prior to procedure a time out was called to verify the correct patient, procedure, equipment, it desktop support specialist and site/side marked as required Supporting DocumentationIndicati ons: pain Procedure DetailsUltrasound guided: noPlatelet Rich Plasma Used: no PRP UsedLocation: hip - R greater trochanteric bursa Right side:Needle size: 25 GApproach: lateralRight hip medications administered: 1 mL lidocaine 10 mg/mL (1 %); 6 mg betamethasone acetate & sodium phosphate 6 mg/mLPatient tolerance: patient tolerated the procedure well with no immediate complications Large Joint Akash Triana MD [place] Arthrocentesis: 18 04/07/2020 2:04 M ethodist hip, R greater 10:00:00 PMLarge Joint trochanteric Arthrocentesis: hip, bursa R greater trochanteric bursaConsent given by: patientTimeout: Immediately prior to procedure a time out was called to verify the correct patient, procedure, equipment, it desktop support specialist and site/side marked as required Supporting DocumentationIndicati ons: pain Procedure DetailsUltrasound guided: noPlatelet Rich Plasma Used: no PRP UsedLocation: hip - R greater trochanteric bursa Right side:Needle size: 25 GApproach: lateralRight hip medications administered: 1 mL lidocaine 10 mg/mL (1 %); 6 mg betamethasone acetate & sodium phosphate 6 mg/mLPatient tolerance: patient tolerated the procedure well with no immediate complications Large Joint Akash Triana MD [place] Arthrocentesis: 04 03/24/2020 1:51 Me thodist hip, R greater 09:30:00 PMLarge Joint trochanteric Arthrocentesis: hip, bursa R greater trochanteric bursaConsent given by: patientTimeout: Immediately prior to procedure a time out was called to verify the correct patient, procedure, equipment, it desktop support specialist and site/side marked as required Supporting DocumentationIndicati ons: pain Procedure DetailsUltrasound guided: noPlatelet Rich Plasma Used: no PRP UsedLocation: hip - R greater trochanteric bursa Right side:Needle size: 25 GApproach: lateralRight hip medications administered: 1 mL lidocaine 10 mg/mL (1 %); 6 mg betamethasone acetate & sodium phosphate 6 mg/mLPatient tolerance: patient tolerated the procedure well with no immediate complications Large Joint Akash Triana MD [place] Arthrocentesis: 12 12/31/2019 4:19 M ethodist hip, R greater 13:50:00 PMLarge Joint trochanteric Arthrocentesis: hip, bursa R greater trochanteric bursaConsent given by: patientSupporting DocumentationIndicati ons: pain Procedure DetailsUltrasound guided: noPlatelet Rich Plasma Used: no PRP UsedLocation: hip - R greater trochanteric bursa Right side:Needle size: 25 G (25 G)Approach: lateralRight hip medications administered: 1 mL lidocaine 10 mg/mL (1 %); 6 mg betamethasone acetate & sodium phosphate 6 mg/mL (3mg betamethasone acet, sod phos 3mg/ml)Patient tolerance: patient tolerated the procedure well with no immediate complications MM, DIGITAL, 2018-02- Reason for MRN#: MAMMO, SCREENING, 14 Exam:->screeni [id number] - BILATERAL 11:48:00 ng MM, DIGITAL, MAMMO, INCLUDING CAD SCREENING, BILATERAL INCLUDING CADBILATERAL DIGITAL SCREENING MAMMOGRAM WITH CAD: 03/03/2018CLINICAL: Routine screening mammogram. Comparison is made to exams dated: 01/29/2017 mammogram, 03/06/2016 mammogram, 01/26/2015 mammogram, 12/28/2013 mammogram, 12/17/2012 mammogram, 01/11/2012 mammogram - [facility], and 10/20/08 mammogram. The tissue of both breasts is heterogeneously dense. This may lower the sensitivity of mammography. Current study was also evaluated with a Computer Aided Detection (CAD) system. Benign appearing calcifications are present in both breasts. There is a post-surgical scar associated with the left breast. No significant masses, calcifications, or other findings are seen in either breast. There has been no significant interval change. IMPRESSION: BENIGNThere is no mammographic evidence of malignancy. A 1 year screening mammogram is recommended. Mihaela Kirkland M.D. ds/:03/03/2018 11:48:31 Normal Exam Mammogram BI-RADS: 2 Benign G0202
[2020-10-12] MEDS ORDERED: NA CHLORIDE 0.9% 1,000 ML ONE ×2 (20:34→21:47)
[2020-10-12] MEDS ORDERED: LORazepam 2 MG/ML VIAL ONE (21:46)
[2020-10-12] MEDS ORDERED: PROMETHAZINE INJ 25 MG/ML AMP ONE (21:46)
[2020-10-12] MEDS ORDERED: FENTANYL CITR 100 MCG/2 ML ONE (21:47)
--- NOTE | 2020-10-12 22:50 | ER ---
Nurse's Notes [facility] Name: Telma Valdez Age: 70 yrs Sex: Female : 1950 Arrival Date: 10/12/2020 Time: 19:10 Bed 13 Private MD: Diagnosis: Pneumonia due to SARS-associated coronavirus;Malaise and fatigue Presentation: 10/12 19:49 Chief complaint: Patient states: Covid positive 10/04. Has SOB, fever, and N/V for the sv past 6 days. Feels dehydrated, lost 10 in 10 days. No appetite. Coronavirus screen: Client denies travel out of the [place] in the last 14 days. congestion, cough unrelated to allergies, fatigue, fever, nausea, shortness of breath, vomiting. Client presents with at least one sign or symptom that may indicate coronavirus-19. Standard/surgical mask placed on the client. Client reports previous positive COVID test result. Ebola Screen: Patient denies travel to an Ebola-affected area in the 21 days before illness onset. Initial Sepsis Screen: Does the patient meet any 2 criteria? HR > 90 bpm. No. Patient's initial sepsis screen is negative. Does the patient have a suspected source of infection? Yes: Productive cough/pneumonia. Risk Assessment: Do you want to hurt yourself or someone else? Patient reports no desire to harm self or others. Onset of symptoms was October 03, 2020. 19:49 Method Of Arrival: Ambulatory sv 19:49 Acuity: EVELIA 3 sv Historical: - Allergies: 19:49 No Known Allergies; sv - PMHx: 19:49 None; sv - PSHx: 19:49 Hysterectomy; sv - Immunization history:: Flu vaccine is not up to date. - Social history:: Smoking status: Patient denies any tobacco usage or history of. Screenin:00 Abuse screen: Denies threats or abuse. Nutritional screening: No deficits noted. jb4 Tuberculosis screening: No symptoms or risk factors identified. Fall Risk None identified. Assessment: 20:00 General: Appears in no apparent distress. uncomfortable, Behavior is calm, cooperative, jb4 appropriate for age. Pain: Complains of pain in Generalized body aches. Pain does not radiate. Pain currently is 8 out of 10 on a pain scale. Neuro: Level of Consciousness is awake, alert, obeys commands, Oriented to person, place, time, situation. Cardiovascular: Patient's skin is warm and dry. Respiratory: Airway is patent Respiratory effort is even, unlabored, Respiratory pattern is regular, symmetrical. GI: Abdomen is flat, non-distended, Reports diarrhea, nausea, vomiting. : No signs and/or symptoms were reported regarding the genitourinary system. EENT: No signs and/or symptoms were reported regarding the EENT system. Derm: Skin is intact, Skin is pink, warm \T\ dry. Musculoskeletal: Circulation, motion, and sensation intact. Range of motion: intact in all extremities. 21:00 Reassessment: Patient appears in no apparent distress at this time. Patient and/or jb4 family updated on plan of care and expected duration. Pain level reassessed. Patient is alert, oriented x 3, equal unlabored respirations, skin warm/dry/pink. 22:00 Reassessment: Patient appears in no apparent distress at this time. Patient and/or jb4 family updated on plan of care and expected duration. Pain level reassessed. Patient is alert, oriented x 3, equal unlabored respirations, skin warm/dry/pink. 22:50 Reassessment: D/c pending completion of IV fluids. jb4 23:00 Reassessment: Patient appears in no apparent distress at this time. Patient and/or jb4 family updated on plan of care and expected duration. Pain level reassessed. Patient is alert, oriented x 3, equal unlabored respirations, skin warm/dry/pink. 23:59 Reassessment: Patient appears in no apparent distress at this time. Patient and/or jb4 family updated on plan of care and expected duration. Pain level reassessed. Patient is alert, oriented x 3, equal unlabored respirations, skin warm/dry/pink. Vital Signs: 19:49 BP 150 / 79; Pulse 92; Resp 18; Temp 99.7; Pulse Ox 94% on R/A; Weight 63.5 kg; Height sv 5 ft. 2 in. (157.48 cm); Pain 8/10; 20:16 BP 146 / 74; Pulse 85; Resp 6; Pulse Ox 96% on R/A; jb4 21:00 BP 142 / 73; Pulse 81; Resp 16; Pulse Ox 98% on R/A; jb4 22:00 BP 150 / 84; Pulse 86; Resp 16; Pulse Ox 95% on R/A; jb4 23:00 BP 110 / 70; Pulse 80; Resp 16; Pulse Ox 98% on 2 lpm NC; jb4 19:49 Body Mass Index 25.61 (63.50 kg, 157.48 cm) sv 23:00 Placed on 2L after ativan and fentanyl administration. jb4 ED Course: 19:10 Patient arrived in ED. rg4 19:49 Arm band placed on Patient placed in an exam room, on a stretcher. sv 19:52 Triage completed. sv 20:00 Patient has correct armband on for positive identification. Bed in low position. Call jb4 light in reach. Side rails up X 1. Pulse ox on. NIBP on. 20:02 Lea Reinoso FNP-C is PHCP. snw 20:02 Robert Gonzalez MD is Attending Physician. snw 20:30 Inserted saline lock: 20 gauge in right wrist, using aseptic technique. jb4 21:20 Lewis Benton, MARIANO is Primary Nurse. jb4 21:[address] via stretcher. sg 22:01 CT Chest For PE Angio In Process Unspecified. EDMS 10/13 00:00 No provider procedures requiring assistance completed. IV discontinued, intact, jb4 bleeding controlled, No redness/swelling at site. Pressure dressing applied. Administered Medications: 10/12 20:25 Drug: NS 0.9% 1000 ml Route: IV; Rate: 1 bolus; Site: right antecubital; jb4 21:25 Follow up: Response: No adverse reaction; IV Status: Completed infusion; IV Intake: jb4 1000ml 22:16 Drug: Phenergan 25 mg Route: IVP; Site: right wrist; jb4 22:45 Follow up: Response: No adverse reaction; Marked relief of symptoms; Nausea is decreasedjb4 22:19 Drug: Ativan 1 mg Route: IVP; Site: right wrist; jb4 22:49 Follow up: Response: No adverse reaction; Marked relief of symptoms jb4 22:20 Drug: NS 0.9% 1000 ml Route: IV; Rate: 125 ml/hr; Site: right wrist; jb4 10/13 00:03 Follow up: Response: No adverse reaction; IV Status: Completed infusion; IV Intake: jb4 1000ml ; Converted to bolus by JOSE Tate 10/12 22:20 Drug: fentaNYL (PF) 50 mcg Route: IVP; Site: right wrist; jb4 22:50 Follow up: Response: No adverse reaction; Pain is increased; RASS: Alert and Calm (0) jb4 Intake: 21:25 IV: 1000ml; Total: 1000ml. jb4 10/13 00:03 IV: 1000ml; Total: 2000ml. jb4 Outcome: 10/12 22:50 Discharge ordered by MD. campbell 10/13 00:01 Discharged to home via wheelchair, with family. jb4 Condition: stable Discharge instructions given to patient, Instructed on discharge instructions, follow up and referral plans. medication usage, Demonstrated understanding of instructions, follow-up care, medications, Prescriptions given X 3. 00:04 Patient left the ED. jb4 Signatures: Dispatcher [employer] EDShirley Dobson RN RN sv Gay, Steven, RN RN sg Waters, Shelly, ELECTRONICS ENGINEER-Darwin DUNNP-Nadege Awad 4 Lewis Benton RN RN jb4 Corrections: (The following items were deleted from the chart) 00:01 10/12 20:30 Discharged to home via wheelchair, with family, jb4 jb4 10/13 00:01 10/12 20:30 Condition: stable jb4 jb4 10/13 00:01 10/12 20:30 Discharge instructions given to patient, Instructed on discharge jb4 instructions, follow up and referral plans. medication usage, Demonstrated understanding of instructions, follow-up care, medications, Prescriptions given X 3, jb4
--- NOTE | 2020-10-12 22:50 | EDPHYS ---
Physician Documentation [facility] Name: Telma Valdez Age: 70 yrs Sex: Female : 1950 Arrival Date: 10/12/2020 Time: 19:10 Bed 13 Private MD: ED Physician Robert Gonzalez HPI: 10/12 20:38 This 70 yrs old Female presents to ER via Ambulatory with complaints of snw Fever, Shortness Of Breath. 20:38 The patient reports fever, not measured (subjective), with a pattern that is x 11 days, snw . Onset: The symptoms/episode began/occurred suddenly, 2 week(s) ago, and became persistent. Associated signs and symptoms: Pertinent positives: decreased appetite, nausea, malaise, fatigue. Severity of symptoms: At their worst the symptoms were severe 10# wt loss in 10days. The patient has not experienced similar symptoms in the past. The patient has been recently seen by a physician: dx with [place], took Hydroxychloroquine, Steroids. Historical: - Allergies: 19:49 No Known Allergies; sv - PMHx: 19:49 None; sv - PSHx: 19:49 Hysterectomy; sv - Immunization history:: Flu vaccine is not up to date. - Social history:: Smoking status: Patient denies any tobacco usage or history of. ROS: 20:40 Eyes: Negative for injury, pain, redness, and discharge, ENT: Negative for injury, snw pain, and discharge, Neck: Negative for injury, pain, and swelling, Cardiovascular: Negative for chest pain, palpitations, and edema. 20:40 Back: Negative for injury and pain, : Negative for injury, bleeding, discharge, and swelling, MS/Extremity: Negative for injury and deformity, Skin: Negative for injury, rash, and discoloration, Neuro: Negative for headache, weakness, numbness, tingling, and seizure, Psych: Negative for depression, anxiety, suicide ideation, homicidal ideation, and hallucinations. 20:40 Constitutional: Positive for body aches, chills, fatigue, fever, malaise, poor PO intake, weight loss. 20:40 Respiratory: Positive for cough. 20:40 Abdomen/GI: Positive for nausea, vomiting. Exam: 20:35 Head/Face: Normocephalic, atraumatic. Eyes: Pupils equal round and reactive to light, snw extra-ocular motions intact. Lids and lashes normal. Conjunctiva and sclera are non-icteric and not injected. Cornea within normal limits. Periorbital areas with no swelling, redness, or edema. ENT: Nares patent. No nasal discharge, no septal abnormalities noted. Tympanic membranes are normal and external auditory canals are clear. Oropharynx with no redness, swelling, or masses, exudates, or evidence of obstruction, uvula midline. Mucous membranes moist. Neck: Trachea midline, no thyromegaly or masses palpated, and no cervical lymphadenopathy. Supple, full range of motion without nuchal rigidity, or vertebral point tenderness. No Meningismus. Chest/axilla: Normal chest wall appearance and motion. Nontender with no deformity. No lesions are appreciated. 20:35 Respiratory: Lungs have equal breath sounds bilaterally, clear to auscultation and percussion. No rales, rhonchi or wheezes noted. No increased work of breathing, no retractions or nasal flaring. Abdomen/GI: Soft, non-tender, with normal bowel sounds. No distension or tympany. No guarding or rebound. No evidence of tenderness throughout. Back: No spinal tenderness. No costovertebral tenderness. Full range of motion. Skin: Warm, dry with normal turgor. Normal color with no rashes, no lesions, and no evidence of cellulitis. MS/ Extremity: Pulses equal, no cyanosis. Neurovascular intact. Full, normal range of motion. Neuro: Awake and alert, GCS 15, oriented to person, place, time, and situation. Cranial nerves II-XII grossly intact. Motor strength 5/5 in all extremities. Sensory grossly intact. Cerebellar exam normal. Normal gait. Psych: Awake, alert, with orientation to person, place and time. Behavior, mood, and affect are within normal limits. 20:35 Constitutional: The patient appears awake, listless, uncomfortable. 20:35 Cardiovascular: Rate: normal, Rhythm: regular, Pulses: no pulse deficits are appreciated, Heart sounds: murmur, systolic. Vital Signs: 19:49 BP 150 / 79; Pulse 92; Resp 18; Temp 99.7; Pulse Ox 94% on R/A; Weight 63.5 kg; Height sv 5 ft. 2 in. (157.48 cm); Pain 8/10; 20:16 BP 146 / 74; Pulse 85; Resp 6; Pulse Ox 96% on R/A; jb4 21:00 BP 142 / 73; Pulse 81; Resp 16; Pulse Ox 98% on R/A; jb4 22:00 BP 150 / 84; Pulse 86; Resp 16; Pulse Ox 95% on R/A; jb4 23:00 BP 110 / 70; Pulse 80; Resp 16; Pulse Ox 98% on 2 lpm NC; jb4 19:49 Body Mass Index 25.61 (63.50 kg, 157.48 cm) sv 23:00 Placed on 2L after ativan and fentanyl administration. jb4 MDM: 20:03 Patient medically screened. snw 22:50 Data reviewed: vital signs, nurses notes. Data interpreted: Pulse oximetry: on room air snw is 94 %. Interpretation: acceptable. Counseling: I had a detailed discussion with the patient and/or guardian regarding: the historical points, exam findings, and any diagnostic results supporting the discharge/admit diagnosis, radiology results, the need for outpatient follow up, to return to the emergency department if symptoms worsen or persist or if there are any questions or concerns that arise at home. Special discussion: I have referred the patient to see his PCP for further evaluation of high blood pressure. Based on the history and exam findings, there is no indication for further emergent testing or inpatient evaluation. I discussed with the patient/guardian the need to see the primary care provider for further evaluation of the symptoms. 10/12 21:17 Order name: CT Chest For PE Angio snw Administered Medications: 20:25 Drug: NS 0.9% 1000 ml Route: IV; Rate: 1 bolus; Site: right antecubital; jb4 21:25 Follow up: Response: No adverse reaction; IV Status: Completed infusion; IV Intake: jb4 1000ml 22:16 Drug: Phenergan 25 mg Route: IVP; Site: right wrist; jb4 22:45 Follow up: Response: No adverse reaction; Marked relief of symptoms; Nausea is decreasedjb4 22:19 Drug: Ativan 1 mg Route: IVP; Site: right wrist; jb4 22:49 Follow up: Response: No adverse reaction; Marked relief of symptoms jb4 22:20 Drug: NS 0.9% 1000 ml Route: IV; Rate: 125 ml/hr; Site: right wrist; jb4 10/13 00:03 Follow up: Response: No adverse reaction; IV Status: Completed infusion; IV Intake: jb4 1000ml ; Converted to bolus by JOSE Tate 10/12 22:20 Drug: fentaNYL (PF) 50 mcg Route: IVP; Site: right wrist; jb4 22:50 Follow up: Response: No adverse reaction; Pain is increased; RASS: Alert and Calm (0) jb4 Disposition: 10/13 07:57 Co-signature as Attending Physician, Robert Gonzalez MD I agree with the assessment and kdr plan of care. Disposition: 10/12/20 22:50 Discharged to Home. Impression: Pneumonia due to SARS-associated coronavirus, Malaise and fatigue. - Condition is Stable. - Discharge Instructions: Fatigue, Aspirin and Your Heart, COVID-19. - Prescriptions for orphenadrine citrate 100 mg Oral Tablet Sustained Release - take 1 tablet by ORAL route 2 times per day As needed; 20 tablet. promethazine 25 mg Oral Tablet - take 1 tablet by ORAL route every 6 hours As needed; 20 tablet. Zithromax 500 mg Oral Tablet - take 1 tablet by ORAL route once daily for 5 days; 5 tablet. - Medication Reconciliation Form, Thank You Letter, Antibiotic Education, Prescription Opioid Use form. - Follow up: Emergency Department; When: As needed; Reason: Worsening of condition. Follow up: Private Physician; When: 2 - 3 days; Reason: Recheck today's complaints, Continuance of care, Re-evaluation by your physician. Signatures: Dispatcher [employer] Shirley Ceja RN RN sv Rittger, Kevin, MD MD kdr Waters, Shelly, SPECIAL EDUCATION TEACHER-C SPECIAL EDUCATION TEACHER-Lewis Linda RN RN jb4 Corrections: (The following items were deleted from the chart) 00:04 10/12 22:50 10/12/2020 22:50 Discharged to Home. Impression: Pneumonia due to jb4 SARS-associated coronavirus; Malaise and fatigue. Condition is Stable. Forms are Medication Reconciliation Form, Thank You Letter, Antibiotic Education, Prescription Opioid Use. Follow up: Emergency Department; When: As needed; Reason: Worsening of condition. Follow up: Private Physician; When: 2 - 3 days; Reason: Recheck today's complaints, Continuance of care, Re-evaluation by your physician. snw
[2020-10-13 00:24] VITALS: TEMP 99.7
[2020-10-13 00:29] VITALS: BP 110/70; O2SAT 98
--- NOTE | 2020-10-13 13:22 | RAD REPORT ---
EXAM DESCRIPTION: CT - Chest For Pe Angio - 10/13/2020 6:41 am CLINICAL HISTORY: 70 years Female COUGH COMPARISON: None. TECHNIQUE: Contiguous axial images were obtained through the chest during the infusion of IV contras t. Reformatted images obtained. MIP reformatted images obtained. This exam was performed according to our department optimization program which includes automated exp osure control, adjustment of the mA and/or kv according to patient size and/or use of iterative recon struction technique. FINDINGS: There are bilateral groundglass opacifications greatest at the periphery of the lungs. The re is a small hiatal hernia. There are punctate calcifications of the right lobe of the thyroid gland. No pneumothorax is seen. Heart size is normal. No pleural effusions. No lymphadenopathy. No PE is see n. No evidence of aortic aneurysm. No other significant abnormality. IMPRESSION: Commonly reported imaging features of viral pneumonia are present. Other processes such as influenza pneumonia and organizing pneumonia, as can be seen with drug toxicity and connective tis juan a disease, can cause a similar imaging pattern. PneTyp Reference: https://pubs.rsna.org/doi/full/[email or web address]/ryct.[email or web address] Hiatal hernia. No evidence of pulmonary embolus. Electronically signed by: Stevie Lorenz 10/12/2020 10:31 PM FOUNDRY OPERATOR Due to temporary technical issues with the PACS/Fluency reporting system, reports are being signed by the in house radiologists without review as a courtesy to insure prompt reporting. The interpreting radiologist is fully responsible for the content of the report.
== END 2020-10-13 00:04 | disposition home or self-care (01) ==
LOC: ER 19:06
DX: U07.1 COVID-19 (principal); J12.89 Other viral pneumonia; R53.81 Other malaise; R53.83 Other fatigue
CPT/HCPCS: 96361; 82565; 71275; 96375; 96374; 99284; Q9967; J2550; J3010; J7030 ×2